=== PATIENT | female | born 1990 | race Two or more races ===

== ENCOUNTER 2016-12-05 14:25 | Observation (INO) | payer MEDICAID ==
[~2016-12-05] VITALS: Ht 165.1 cm; Wt 59.9 kg
[~2016-12-05 14:25] MED LIST: PRENCAP87 PO
[2016-12-05] MEDS ORDERED: TERBUTALINE SULFATE 1 MG/ML 1ML VIAL SC ONE (15:19)
[2016-12-05] MEDS: TERBUTALINE SULFATE 1 MG/ML 1ML VIAL SC PRN ×2 (15:27→16:27)
[2016-12-05] MEDS ORDERED: BETAMETHASONE ACET (6MG/ML) 5ML VIAL IM SCH (16:00)
== END 2016-12-05 17:15 | disposition home or self-care (01) | DRG 566 ==
LOC: LDRP 14:25
PROVIDERS: ADMIT Obstetrics & Gynecology; ATTEND Obstetrics & Gynecology
DX: O21.2 Late vomiting of pregnancy (principal); O26.893 Other specified pregnancy related conditions, third trimester; M54.5 Low back pain; R10.9 Unspecified abdominal pain; Z3A.32 32 weeks gestation of pregnancy
CPT/HCPCS: 59025; 81002; 96372; G0378; J0702; J3105

== ENCOUNTER 2016-12-06 16:11 | Observation (INO) | payer MEDICAID ==
[~2016-12-06] VITALS: Ht 1 cm; Wt 0.5 kg
[2016-12-06] MEDS ORDERED: BETAMETHASONE ACET (6MG/ML) 5ML VIAL IM ONE (16:45)
== END 2016-12-06 17:00 | disposition home or self-care (01) | DRG 566 ==
LOC: LDRP 16:11
PROVIDERS: ADMIT Obstetrics & Gynecology; ATTEND Obstetrics & Gynecology
DX: O26.893 Other specified pregnancy related conditions, third trimester (principal); M54.9 Dorsalgia, unspecified; R10.9 Unspecified abdominal pain; Z3A.33 33 weeks gestation of pregnancy
CPT/HCPCS: 59025; 81002; G0378

== ENCOUNTER 2016-12-22 13:13 | Observation (INO) | payer MEDICAID | END 2016-12-22 14:25 | disposition home or self-care (01) | DRG 566 | LOC: LDRP 13:13 | PROVIDERS: ADMIT Obstetrics & Gynecology; ATTEND Obstetrics & Gynecology | DX: O26.893 Other specified pregnancy related conditions, third trimester (principal); N89.8 Other specified noninflammatory disorders of vagina; M54.9 Dorsalgia, unspecified; Z3A.35 35 weeks gestation of pregnancy | CPT/HCPCS: 59025; 81002; G0378 ==

== ENCOUNTER 2017-01-24 21:10 | Observation (INO) | payer MEDICAID | END 2017-01-24 22:35 | disposition home or self-care (01) | DRG 566 | LOC: LDRP 21:10 | PROVIDERS: ADMIT Specialist; ATTEND Specialist | DX: O26.853 Spotting complicating pregnancy, third trimester (principal); O48.0 Post-term pregnancy; Z3A.40 40 weeks gestation of pregnancy | CPT/HCPCS: 59025; 81002; G0378 ==

== ENCOUNTER 2017-01-25 16:30 | Inpatient (IN) | payer MEDICAID ==
[~2017-01-25] VITALS: Ht 1 cm; Wt 0.5 kg
[2017-01-25] MEDS ORDERED: LACT. RINGERS/OXYTOCIN 20UNITS 1,000 ML IV SCH (17:18)
[2017-01-25] MEDS ORDERED: PHISODERM TOP SOLN 240ML BTL TOP PRN (17:30)
[2017-01-25] MEDS ORDERED: WITCH HAZEL-GLYCERIN PAD TOP PRN (17:30)
[2017-01-25] MEDS ORDERED: DERMOPLAST 60ML BOTTLE TOP PRN (17:30)
[2017-01-25] MEDS ORDERED: NALBUPHINE HCL 10 MG/1ml INJECTION IV PRN (17:30)
[2017-01-25] MEDS ORDERED: LIDOCAINE 2%HCL (LOCAL ANESTH.) INJ 20ML MDV IJ ONE (17:30)
[2017-01-25 18:06] LABS: Basophils # (auto) 0 uL; Basophils % (auto) 0.3 % (0.0-2.0); DEFINITIVE VIEW TRANSMISSION; Eosinophils # (auto) 0.1 uL; Eosinophils % (auto) 0.9 % (0.0-7.0); Hematocrit 30.5 % (36.0-46.0); Lymphocytes # (auto) 1.4 uL; Lymphocytes % (auto) 16.4 % (10.0-50.0); Mean Corpuscular Hemoglobin 25.9 pg (28.0-32.0); Mean Corpuscular Hgb Conc. 32.7 g/dL (32.0-36.0); Mean Corpuscular Volume 79.1 fL (80.0-100.0); Mean Platelet Volume 10.9 fL (7.4-10.4); Monocytes # (auto) 0.6 uL; Monocytes % (auto) 7.5 % (0.0-12.0); Neutrophils # (auto) 6.2 uL; Neutrophils % (auto) 74.9 % (37.0-80.0); Platelet Count (auto) 157 10^3/uL (140-450); Red Cell Distribution Width 16.7 % (11.6-16.0); White Blood Cell 8.3 10^3/uL (4.4-10.8)
[2017-01-25 18:19] LABS: INR 0.93 (0.9-1.15); Partial Thromboplastin Time 26.9 sec (22.64-33.71)
[2017-01-25 18:29] LABS: Albumin 2.8 g/dL (3.4-5.0); Anion Gap 10 (5-15); Aspartate Aminotransferase 15 U/L (15-37); BUN/Creatinine Ratio 23.5; Blood Urea Nitrogen 8 mg/dL (7-18); Calcium 8.2 mg/dL (8.5-10.1); Carbon Dioxide 22 mmol/L (21-32); Chloride 109 mmol/L (98-107); GFR African American 302 mL/min; GFR Non-African American 249 mL/min; Glucose 77 mg/dL (74-106); Potassium 3.4 mmol/L (3.5-5.1); Sodium 141 mmol/L (136-145)
[2017-01-25 18:31] LABS: Alkaline Phosphatase 159 U/L (45-117); Bilirubin, Total < 0.1 mg/dL (0.2-1.0); Total Protein 6.1 g/dL (6.4-8.2)
[2017-01-25 19:19] LABS: Urine Bilirubin Negative (Negative); Urine Blood Negative /uL (Negative); Urine Color Yellow (Yellow); Urine Glucose Normal (Normal); Urine Ketone Negative (Negative); Urine Mucus FEW (None Seen); Urine Nitrite Negative (Negative); Urine RBC 3 /hpf (0 - 4); Urine Squamous Epithelial Cell FEW /hpf (<5); Urine pH 7.5 (5.0-8.0)
[2017-01-25] MEDS ORDERED: METHYLERGONOVINE MALEATE 0.2 MG/ML AMP IM ONE (22:12)
[2017-01-25] MEDS ORDERED: NALOXONE HCL 0.4 MG/ML VIAL IV ONE (22:30)
[2017-01-25] MEDS ORDERED: LIDOCAINE HCL 2 %PF INJ 10ML AMP IJ ONE (22:30)
[2017-01-25] MEDS ORDERED: fentaNYL CITRATE 100 MCG/2 ML VL IV ONE (22:30)
[2017-01-25] MEDS ORDERED: ePHEDrine SULFATE 50 MG/ML AMP IV ONE (22:30)
[2017-01-25] MEDS ORDERED: fentaNYL W ROPIVACAINE 150 ML EPI SCH (22:30)
[2017-01-25] MEDS: LACTATED RINGER'S 1,000 ML IV SCH (23:30)
[2017-01-26] MEDS: LACTATED RINGER'S 1,000 ML IV SCH ×3 (01:18→17:18)
[2017-01-26] MEDS ORDERED: ACETAMINOPHEN 325 MG TAB PO PRN (02:15)
[2017-01-26] MEDS: LACT. RINGERS/OXYTOCIN 20UNITS 1,000 ML IV SCH ×3 (03:02→16:22)
[2017-01-26] MEDS: IBUPROFEN 600 MG TAB PO PRN (03:59)
[2017-01-26 08:00] VITALS: BP 110/63
[2017-01-26 12:00] VITALS: BP 115/64
[2017-01-26 16:00] VITALS: BP 115/63
[2017-01-26 19:30] VITALS: BP 94/52
[2017-01-26 23:54] VITALS: BP 106/63
[2017-01-27 04:03] VITALS: BP 93/50
[2017-01-27 08:30] VITALS: BP 103/64
[2017-01-27] MEDS: IBUPROFEN 600 MG TAB PO PRN (09:36)
== END 2017-01-27 11:47 | disposition home or self-care (01) | DRG 560 ==
LOC: LDRP 16:30
PROVIDERS: ADMIT Specialist; ATTEND Specialist
PROC: 10E0XZZ Delivery of Products of Conception, External Approach (ICD-10-PCS; principal; 2017-01-26)
PROC: 00HU33Z Insertion of Infusion Device into Spinal Canal, Percutaneous Approach (ICD-10-PCS; 2017-01-26)
PROC: 3E0R3CZ (ICD-10-PCS; 2017-01-26)
PROC: 3E0P7GC Introduction of Other Therapeutic Substance into Female Reproductive, Via Natural or Artificial Opening (ICD-10-PCS; 2017-01-26)
PROC: 10907ZC Drainage of Amniotic Fluid, Therapeutic from Products of Conception, Via Natural or Artificial Opening (ICD-10-PCS; 2017-01-26)
DX: O48.0 Post-term pregnancy (principal); O69.1XX0 Labor and delivery complicated by cord around neck, with compression, not applicable or unspecified; Z88.6 Allergy status to analgesic agent; Z37.0 Single live birth; Z3A.40 40 weeks gestation of pregnancy
CPT/HCPCS: 36415; 51702; 59025; 59409; 62282; 80053; 81001; 85025; 85610; 85730; 86850; 86900; 86901; 96361; 96366; G0434; J2590; J3010

== ENCOUNTER 2019-07-29 09:01 | Inpatient (IN) | payer MEDICAID ==
[~2019-07-29] VITALS: Ht 165.1 cm; Wt 61.3 kg
[2019-07-29] MEDS ORDERED: SODIUM CHLORIDE 0.9% 1,000 ML IV ONE (09:30)
[2019-07-29 09:40] LABS: Urine Bacteria NONE SEEN /hpf (None Seen); Urine Blood Negative /uL (Negative); Urine Specific Gravity 1.008 (1.001-1.035); Urine WBC 1 /hpf (0 - 5)
[2019-07-29 09:50] LABS: Basophils # (auto) 0 uL; Basophils % (auto) 0.6 % (0.0-2.0); Eosinophils # (auto) 0.1 uL; Eosinophils % (auto) 1.8 % (0.0-7.0); Hematocrit 40.2 % (36.0-46.0); Hemoglobin 13.5 g/dL (12.2-16.2); Lymphocytes # (auto) 1.2 uL; Mean Corpuscular Hemoglobin 28.6 pg (28.0-32.0); Mean Corpuscular Hgb Conc. 33.5 g/dL (32.0-36.0); Mean Corpuscular Volume 85.3 fL (80.0-100.0); Monocytes # (auto) 0.4 uL; Neutrophils # (auto) 5.6 uL; Neutrophils % (auto) 75.6 % (37.0-80.0); Nucleated Red Blood Cells % 0.1 %; Platelet Count (auto) 180 10^3/uL (140-450); Red Blood Cells 4.71 10^6/uL (4.0-5.20); Red Cell Distribution Width 15.6 % (11.8-14.3); White Blood Cell 7.4 10^3/uL (4.4-10.8)
[2019-07-29 10:13] LABS: Albumin 3.8 g/dL (3.4-5.0); BUN/Creatinine Ratio 11.3; Calcium 8.6 mg/dL (8.5-10.1); Potassium 3.7 mmol/L (3.5-5.1)
[2019-07-29 10:14] LABS: Bilirubin, Total 0.4 mg/dL (0.2-1.0); Total Protein 7.2 g/dL (6.4-8.2)
[2019-07-29] MEDS ORDERED: MORPHINE SULF INJ 2 MG/ML SYRINGE 1ML ONE (10:20)
[2019-07-29] MEDS ORDERED: PROMETHAZINE HCL 25 MG/ML 1ML ONE (10:20)
[2019-07-29] MEDS ORDERED: MORPHINE SULF INJ 2 MG/ML SYRINGE 1ML IV ONE (10:30)
[2019-07-29] MEDS ORDERED: PROMETHAZINE HCL 25 MG/ML 1ML IV ONE (10:30)
[2019-07-29] MEDS: SODIUM CHLORIDE 0.9% 1,000 ML IV SCH (14:30)
[2019-07-29] MEDS: ACETAMINOPHEN 325 MG TAB PO PRN (17:15)
[2019-07-29] MEDS ORDERED: traMADol HCL 50 MG TAB PO PRN (17:30)
--- NOTE | 2019-07-29 17:55 | NUR ---
[facility] admit from ER SHADI,AIDA admitted to [facility] after SBAR received. Patient oriented to Vidal Harrington, primary RN, unit, room, bed, and unit policies regarding patient care and visiting hours. Patient weighed by bed scale and encouraged to call if they need something. All questions and concerns addressed, patient verbalized understanding.
[2019-07-29 18:00] VITALS: BP 100/58
--- NOTE | 2019-07-29 18:44 | NUR ---
OB/GYNE consult called in for Dr. Amos.
--- NOTE | 2019-07-29 19:30 | NUR ---
RECEIVED PATIENT FROM DAY SHIFT RN. PATIENT RESTING IN BED. FAMILY AT BEDSIDE. NO S/S OF DISTRESS NOTED. C/O RLQ ABD PAIN @ 6/10 AFTER PAIN MEDICATION GIVEN EARLIER. REINFORCED PAIN MANAGEMENT SCHEDULE. WILL COME BACK FOR PAIN MEDICATION LATER WHEN THE TIME IS DUE AND PER PATIENT REQUESTS. POC INSTRUCTED AND ENCOURAGED PATIENT TO CALL FOR WATER MAIN INSTALLER HELPER IF NEEDED. BED IN LOWEST POSITION WITH SIDE RAILS UP X 2. CALL [facility] WITHIN REACH. CONTINUE TO MONITOR FOR CHANGES Q1H AND PRN.
[2019-07-29] MEDS: ONDANSETRON HCL 4 MG/2 ML VIAL IV PRN (21:15)
--- NOTE | 2019-07-29 21:18 | NUR ---
TRANSFERRED PATIENT FROM 248 A TO 238 VIA HOSPITAL BED. PATIENT TOLERATED WELL. NO S/S OF DISTRESS NOTED. MEDICATED PATIENT FOR NAUSEA ORDERED. CONTINUE TO MONITOR.
[2019-07-29 21:45] VITALS: BP 127/69
--- NOTE | 2019-07-29 21:52 | NUR ---
PATIENT SLEEPING NOW. NO S/S OF NAUSEA AND PAIN NOTED. FAMILY AT BEDSIDE FOR EMOTIONAL SUPPORT. CHARGE NURSE EMI AND [employer]ANT OPERATOR FRANCESCA FITCH. CONTINUE TO MONITOR.
--- NOTE | 2019-07-30 00:44 | NUR ---
PATIENT SLEEPING. NO S/S OF DISTRESS AND PAIN NOTED. FAMILY AT BEDSIDE FOR EMOTIONAL SUPPORT. CONTINUE TO MONITOR.
[2019-07-30] MEDS: SODIUM CHLORIDE 0.9% 1,000 ML IV SCH ×3 (02:19→20:15)
--- NOTE | 2019-07-30 03:44 | NUR ---
PATIENT SLEEPING. NO S/S OF DISTRESS AND PAIN NOTED. FAMILY AT BEDSIDE FOR EMOTIONAL SUPPORT. CONTINUE TO MONITOR.
[2019-07-30 04:53] VITALS: BP 98/58
[2019-07-30 06:46] LABS: Basophils # (auto) 0 uL; Basophils % (auto) 0.5 % (0.0-2.0); Eosinophils # (auto) 0.1 uL; Eosinophils % (auto) 2.1 % (0.0-7.0); Hematocrit 34.9 % (36.0-46.0); Hemoglobin 11.7 g/dL (12.2-16.2); Lymphocytes # (auto) 1.3 uL; Lymphocytes % (auto) 19.8 % (10.0-50.0); Mean Corpuscular Hemoglobin 28.7 pg (28.0-32.0); Mean Corpuscular Hgb Conc. 33.5 g/dL (32.0-36.0); Mean Corpuscular Volume 85.6 fL (80.0-100.0); Monocytes # (auto) 0.4 uL; Monocytes % (auto) 6.2 % (0.0-12.0); Neutrophils # (auto) 4.6 uL; Neutrophils % (auto) 71.4 % (37.0-80.0); Platelet Count (auto) 154 10^3/uL (140-450); Red Blood Cells 4.08 10^6/uL (4.0-5.20); Red Cell Distribution Width 15.5 % (11.8-14.3); White Blood Cell 6.5 10^3/uL (4.4-10.8)
[2019-07-30 06:59] LABS: Albumin 3.1 g/dL (3.4-5.0); Calcium 7.9 mg/dL (8.5-10.1); Potassium 3.4 mmol/L (3.5-5.1)
[2019-07-30 07:03] LABS: BUN/Creatinine Ratio 11.1; Bilirubin, Total 0.6 mg/dL (0.2-1.0)
--- NOTE | 2019-07-30 07:30 | NUR ---
Opening Shift Note Assumed care of patient, awake and alert. No S/S of distress/SOB or pain. For patient safety the bed is in lowest position, wheels locked and call light with in reach. Instructed on POC and to call for assist PRN, will continue to monitor for changes PRN.
[2019-07-30 08:00] VITALS: BP 98/54
[2019-07-30] MEDS: ONDANSETRON HCL 4 MG/2 ML VIAL IV PRN ×2 (08:27→15:42)
[2019-07-30] MEDS: ACETAMINOPHEN 325 MG TAB PO PRN (08:40)
[2019-07-30 09:00] VITALS: BP 98/54
[2019-07-30] MEDS ORDERED: POTASSIUM CHLORIDE 20 MEQ, LIDOCAINE 1% (LOCAL ANESTH.) 2 ML in SODIUM CHL 0.9% 100 ML IV ONE (09:45)
--- NOTE | 2019-07-30 09:50 | NUR ---
SPOKE WITH DOCTOR NOE, ORDERS RECEIVED, WILL PLACE AND CARRY OUT.
[2019-07-30] MEDS ORDERED: POTASSIUM EFFERVESENT TAB 25 MEQ PO ONE (10:45)
[2019-07-30] MEDS: PRENATAL VITAMIN TAB PO SCH (11:05)
[2019-07-30] MEDS: ACETAMINOPHEN/CODEINE#3 (300/30mg) TAB PO PRN ×2 (12:32→18:59)
[2019-07-30 13:00] VITALS: BP 100/50
[2019-07-30 17:00] VITALS: BP 101/61
--- NOTE | 2019-07-30 19:08 | NUR ---
RECEIVED PATIENT FROM DAY SHIFT RN. PATIENT RESTING IN BED. FAMILY AT BEDSIDE. NO S/S OF DISTRESS NOTED. C/O RLQ ABD PAIN @ 4/10 AFTER PAIN MEDICATION GIVEN EARLIER. BUT PATIENT STARTED TO C/O HEADACHE @ 7/10. SINCE PATIENT ALREADY RECEIVED PAIN MEDICATION EARLIER, REINFORCED PAIN MANAGEMENT SCHEDULE. WILL COME BACK FOR PAIN MEDICATION LATER WHEN THE TIME IS DUE AND PER PATIENT REQUESTS. PATIENT VERBALIZED UNDERSTANDING. POC INSTRUCTED AND ENCOURAGED PATIENT TO CALL FOR HUMAN CAPITAL MANAGER IF NEEDED. BED IN LOWEST POSITION WITH SIDE RAILS UP X 2. CALL [facility] WITHIN REACH. CONTINUE TO MONITOR FOR CHANGES Q1H AND PRN.
[2019-07-30 21:00] VITALS: BP 102/58
--- NOTE | 2019-07-30 22:49 | NUR ---
PATIENT SLEEPING. NO S/S OF DISTRESS NOTED. NO PAIN AND NAUSEA NOTED. FAMILY AT BEDSIDE . CONTINUE TO MONITOR.
[2019-07-31] MEDS: SODIUM CHLORIDE 0.9% 1,000 ML IV SCH ×2 (02:15→16:38)
--- NOTE | 2019-07-31 03:27 | NUR ---
PATIENT SLEEPING. NO S/S OF DISTRESS AND PAIN NOTED. FAMILY AT BEDSIDE FOR EMOTIONAL SUPPORT. CONTINUE TO MONITOR.
[2019-07-31 04:50] VITALS: BP 93/55
[2019-07-31] MEDS: ACETAMINOPHEN/CODEINE#3 (300/30mg) TAB PO PRN (04:56)
[2019-07-31] MEDS: ONDANSETRON HCL 4 MG/2 ML VIAL IV PRN ×2 (04:56→09:10)
--- NOTE | 2019-07-31 04:56 | NUR ---
PATIENT WOKE UP TO BATHROOM WITH STEADY GAIT. C/O PAIN @ 7/10 ASSOCIATED WITH NAUSEA. MEDICATED PATIENT ORDERED. CONTINUE TO MONITOR.
[2019-07-31 07:12] LABS: Basophils # (auto) 0 uL; Basophils % (auto) 0.6 % (0.0-2.0); Eosinophils # (auto) 0.1 uL; Eosinophils % (auto) 1.8 % (0.0-7.0); Hematocrit 35.5 % (36.0-46.0); Lymphocytes # (auto) 1.1 uL; Lymphocytes % (auto) 17.7 % (10.0-50.0); Mean Corpuscular Hemoglobin 28.8 pg (28.0-32.0); Mean Corpuscular Hgb Conc. 33.9 g/dL (32.0-36.0); Mean Corpuscular Volume 84.9 fL (80.0-100.0); Monocytes # (auto) 0.5 uL; Monocytes % (auto) 7.9 % (0.0-12.0); Neutrophils # (auto) 4.5 uL; Platelet Count (auto) 161 10^3/uL (140-450); Red Blood Cells 4.18 10^6/uL (4.0-5.20); Red Cell Distribution Width 15.1 % (11.8-14.3); White Blood Cell 6.3 10^3/uL (4.4-10.8)
[2019-07-31 07:26] LABS: Calcium 8.5 mg/dL (8.5-10.1); Potassium 3.9 mmol/L (3.5-5.1)
[2019-07-31 07:30] LABS: BUN/Creatinine Ratio 11.4
--- NOTE | 2019-07-31 07:35 | NUR ---
Opening Shift Note Assumed care of patient, awake and alert. No S/S of distress/SOB or pain. For safety the bed is locked in the lowest position with 2 side rails up. Instructed on POC and to call for assist PRN, will continue to monitor for changes.
[2019-07-31 08:00] VITALS: BP 101/59
[2019-07-31 09:00] VITALS: BP 101/59
[2019-07-31] MEDS: PRENATAL VITAMIN TAB PO SCH (10:53)
[2019-07-31 13:00] VITALS: BP 99/61
[2019-07-31 17:00] VITALS: BP 102/59
== END 2019-07-31 18:48 | disposition home or self-care (01) | DRG 566 ==
LOC: ER 09:01 → OVERFLOW 09:02 → EAST 17:57
PROVIDERS: ADMIT Nurse Practitioner Acute Care; ATTEND Internal Medicine Pulmonary Disease
DX: O99.89 Other specified diseases and conditions complicating pregnancy, childbirth and the puerperium (principal); E44.1 Mild protein-calorie malnutrition; E87.6 Hypokalemia; O99.511 Diseases of the respiratory system complicating pregnancy, first trimester; J45.909 Unspecified asthma, uncomplicated; Z3A.01 Less than 8 weeks gestation of pregnancy; N83.202 Unspecified ovarian cyst, left side; O34.81 Maternal care for other abnormalities of pelvic organs, first trimester; O99.281 Endocrine, nutritional and metabolic diseases complicating pregnancy, first trimester; O25.11 Malnutrition in pregnancy, first trimester; R10.31 Right lower quadrant pain; O21.8 Other vomiting complicating pregnancy
CPT/HCPCS: 36415; 72195; 76705; 76801; 80048; 80053; 81001; 82150; 82962; 83690; 84702; 85025; 85610; 87086; 94761; G0378; J2001; J2405